=== PATIENT | male | born 1970 | race Caucasian/White ===

== ENCOUNTER 2020-03-19 19:21 | Observation (INO) | payer OTHER ==
[~2020-03-19] VITALS: Ht 190.5 cm; Wt 100.0 kg
[2020-03-19 22:25] LABS: BASOPHILS # (AUTO) 0.03 x10^3/uL (0-0.1); BASOPHILS % (AUTO) 0 % (0-1); EOSINOPHILS # (AUTO) 0.12 x10^3/uL (0-0.4); EOSINOPHILS % (AUTO) 2 % (1-7); LYMPHOCYTES # (AUTO) 2.81 x10^3/uL (1-3.4); LYMPHOCYTES % (AUTO) 34 % (22-44); MD NO; MEAN CORPUSCULAR HEMOGLOBIN 29.6 pg (27.5-34.5); MEAN CORPUSCULAR HGB CONC 33.9 g/dL (33.2-36.2); MEAN CORPUSCULAR VOLUME 87.3 fL (81-97); MEAN PLATELET VOLUME 7.9 fL (7.4-10.4); MONOCYTES # (AUTO) 0.56 x10^3/uL (0.2-0.8); MONOCYTES % (AUTO) 7 % (2-9); NEUTROPHILS # (AUTO) 4.65 x10^3/uL (1.8-6.8); NEUTROPHILS % (AUTO) 57 % (42-75); PLATELET COUNT 256 x10^3/uL (130-400); RED BLOOD COUNT 5.28 x10^6/uL (4.38-5.82); RED CELL DISTRIBUTION WIDTH 12.5 % (9.4-14.8)
[2020-03-19 22:26] LABS: CHLORIDE 107 mmol/L (98-107)
[2020-03-19 22:35] LABS: ALANINE AMINOTRANSFERASE 30 U/L (12-78); ALKALINE PHOSPHATASE 67 U/L (45-117); ANION GAP 6 mmol/L (5-15); BILIRUBIN,TOTAL 0.6 mg/dL (0.2-1.0); CREATININE 0.99 mg/dL (0.7-1.3); TOTAL PROTEIN 7.4 g/dL (6.4-8.2); TROPONIN I < 0.015 ng/mL (0.000-0.045)
[2020-03-20] MEDS ORDERED: ACETAMINOPHEN 325 MG TABLET PO PRN
[2020-03-20] MEDS ORDERED: ONDANSETRON ODT 4 MG PO PRN
[2020-03-20] MEDS ORDERED: POLYETHYLENE GLYCOL 17 GM PACKET PO PRN
[2020-03-20] MEDS ORDERED: NITROGLYCERIN 0.4 MG BOTTLE (25 TABS) SL PRN
[2020-03-20] MEDS ORDERED: morphine SULFATE 10 MG/ML, 1ML IVPush PRN
[2020-03-20] MEDS ORDERED: BISACODYL 10 MG SUPP PR PRN
[2020-03-20 00:04] VITALS: BP 125/78
[2020-03-20] MEDS ORDERED: SIMV40TA20 PO (00:11)
[2020-03-20] MEDS ORDERED: METO25TA35 PO (00:11)
[2020-03-20] MEDS ORDERED: LISI-167 PO (00:11)
[2020-03-20] MEDS: HEPARIN 5,000 UNITS/ML, 1ML SQ SCH ×2 (00:37→08:24)
[2020-03-20] MEDS ORDERED: ASPIRIN 325 MG TABLET EC PO SCH (06:00)
[2020-03-20 07:48] LABS: CHOLESTEROL, TOTAL 143 mg/dL (140-239); TRIGLYCERIDES 116 mg/dL (50-200); VLDL CHOLESTEROL 23 mg/dL (0-25)
[2020-03-20 07:51] LABS: CHOL/HDL RATIO 3.7; HDL CHOL % 27 % (26-37); HDL CHOLESTEROL (DIRECT) 39 mg/dL (40-60); LDL CHOLESTEROL,CALCULATED 81 mg/dL (54-169); LDL/HDL RATIO 2.1 (0.5-3.0); TROPONIN I < 0.015 ng/mL (0.000-0.045)
[2020-03-20 08:23] VITALS: BP 132/77
[2020-03-20] MEDS ORDERED: ASPIRIN 81 MG TABLET EC PO SCH (09:00)
[2020-03-20] MEDS ORDERED: LISINOPRIL 10 MG TABLET PO SCH (09:00)
[2020-03-20] MEDS ORDERED: METOPROLOL TARTRATE 25 MG TAB PO SCH (09:00)
[2020-03-20] MEDS ORDERED: SENNA/DOCUSATE TABLET PO SCH (09:00)
[2020-03-20 10:28] LABS: TROPONIN I < 0.015 ng/mL (0.000-0.045)
[2020-03-20 11:56] VITALS: BP 125/78
[2020-03-20] MEDS ORDERED: SIMVASTATIN 40 MG TABLET PO SCH (21:00)
== END 2020-03-20 14:36 | disposition home or self-care (01) ==
LOC: ED 22:14 → INTOOBSV 23:33 → EDIP 23:33 → 5SO 03-20 00:14
PROVIDERS: ADMIT Internal Medicine; ATTEND Hospitalist
DX: R07.9 Chest pain, unspecified (principal); I49.3 Ventricular premature depolarization; I10 Essential (primary) hypertension; E78.5 Hyperlipidemia, unspecified
CPT/HCPCS: 36415; 71045; 78452; 80053; 80061; 84484; 85025; 93005; 93017; 96372; 99285; A9502; C9898; G0378; J1644